=== PATIENT | male | born 1950 | race Two or more races ===

== ENCOUNTER 2017-11-20 12:50 | Outpatient (RCR) | payer OTHER | END 2017-12-14 | disposition home or self-care (01) | LOC: PTY 12:50 | DX: M25.512 Pain in left shoulder (principal); M25.522 Pain in left elbow ==

== ENCOUNTER 2017-12-28 10:35 | Outpatient (RCR) | payer OTHER | END 2018-01-13 | disposition home or self-care (01) | LOC: PTY 10:35 | DX: M25.512 Pain in left shoulder (principal); M25.522 Pain in left elbow ==

== ENCOUNTER 2018-01-16 14:45 | Outpatient (RCR) | payer OTHER | END 2018-02-13 | disposition home or self-care (01) | LOC: PTY 14:45 | DX: M25.512 Pain in left shoulder (principal); M25.522 Pain in left elbow ==